=== PATIENT | male | born 1980 | race Caucasian/White ===

== ENCOUNTER 2019-07-10 10:33 | Emergency (ER) | payer SELFPAY ==
--- NOTE | 2019-07-10 12:15 | UC ---
Back Pain HPI - HPI Summary HPI Summary: 39 year old male, no PCP, no major back injuries in the past, presents with increased lower back pain starting on Wednesday. Patient was bending down to tie shoe, when straightening up, felt pop and extreme pain in right lower back. No radiating, no numbness/ tingling. No decrease in strength. Pain with spasms in left upper thigh. 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 - History of Current Complaint Chief Complaint: UCBackPain Stated Complaint: BACK INJURY Time Seen by Provider: 07/10/19 11:41 Hx Obtained From: Patient Onset/Duration: Sudden Onset, Lasting Days - 3/7 Timing: Constant Severity Initially: Severe Severity Currently: Severe Pain Intensity: 10 Pain Scale Used: 0-10 Numeric Back Pain: Is Discrete @ - right lower leg Associated Signs And Symptoms: Negative: Swelling, Weakness, Numbness, Tingling , Flank Pain, Bladder Incontinence, Bowel Incontinence, Weight Loss, Pain with Weight Bearing - Allergies/Home Medications Allergies/Adverse Reactions: Allergies Allergy/AdvReac Type Severity Reaction Status Date / Time No Known Allergies Allergy Verified 07/10/19 10:45 Home Medications: Home Medications Cyclobenzaprine TAB* [Flexeril 10 MG TAB*] 10 mg PO TID PRN #30 tab 07/10/19 [Rx ] Naproxen [Naproxen 250 mg tab] 250 mg PO BID #6 tablet 07/10/19 [Rx] predniSONE [Prednisone 20 MG TAB] 2 tab PO DAILY #10 tablet 07/10/19 [Rx] PMH/Surg Hx/FS Hx/Imm Hx Previously Healthy: Yes - Surgical History Surgical History: Yes Surgery Procedure, Year, and Place: growth removed from neck as a child - Family History Known Family History: Positive: Non-Contributory - Social History Occupation: Employed Full-time - construction work Alcohol Use: None Substance Use Type: None Smoking Status (MU): Never Smoked Tobacco Review of Systems All Other Systems Reviewed And Are Negative: Yes Constitutional: Positive: Negative Musculoskeletal: Positive: Arthralgia, Decreased ROM, Myalgia Neurological/Mental Status: Positive: Negative Psychological: Positive: Negative Is Patient Immunocompromised?: No Physical Exam Triage Information Reviewed: Yes Appearance: Well-Appearing, Well-Nourished, Pain Distress - worse with movement Vital Signs: Initial Vital Signs Temp 98.7 F 07/10/19 10:40 Pulse 88 07/10/19 10:40 Resp 17 07/10/19 10:40 BP 138/97 07/10/19 10:40 Pulse Ox 100 07/10/19 10:40 Vital Signs Reviewed: Yes Eyes: Positive: Conjunctiva Clear Neck: Positive: Supple, Nontender, No Lymphadenopathy. Negative: Nuchal Rigidity, Enlarged Nodes @ Musculoskeletal: Positive: Strength Intact - lower back, L hip, l knee, ROM Intact - full FF, extension. able to stand on one foot, alternating, toe/ heel stand, heel up thomson b/l, neg rhomberg. Neurological: Positive: Alert, Other: - patellar reflexes 2+ b/l SITLT distal to ankle L sided. DF/pF intact b/l Psychological Exam: Normal Skin Exam: Normal Skin: Negative: Rashes, Breakdown Back Pain Course/Dx - Course Course Of Treatment: - Flexeril for muscle spasms as needed - Prednisone 40mg daily x 5 days - Naproxen 250mg twice daily x 3 days, start after completing prednisone - Back exercises, gently - No lifting/ pushing/ pulling greater than 20 pounds for 3-4 days, gently increase - Rest, ice/ heat as needed - Go to ER with numbness/ decreased strength, weakness, loss of bowel/ bladder function radiograph: Bench Mechanic: Cheng Foss Daniel, ([id number]) Break And Load Operator: APRIL ( APRIL) Report Date: 07/10/2019 13:00:00 Report Status: Final ====== Start of Report Content Patient Name: EVERETT PANDYA Medical Record#: [id number] Ordering Physician: Sheila SULTANA Acct.#: [id number] : 06/1979 Age: 39 Sex: M Location: [facility] Exam Date: 07/10/19 1234 ADM Status: REG ER Order Information: SP LUMBARSACRAL 4+ VWS Accession Number: [id number] CPT: 11562 HISTORY: lower back pain, "pop" noise 07/07 COMPARISONS: None relevant available at the time of dictation. VIEWS: 5 , Frontal, lateral, coned-down lateral sacral, and bilateral oblique views of the lumbar spine. FINDINGS: ALIGNMENT: There is a mild dextroscoliotic curvature of the spine. VERTEBRAL BODIES: There is anterolateral marginal osteophyte formation JOINTS: There is facet osteoarthritis most advanced at L4-L5 and L5- S1. INTERVERTEBRAL DISCS: There is mild diffuse loss of intervertebral disc height. SOFT TISSUE: Unremarkable. OTHER: There is mild osteoarthritis of the hips. IMPRESSION: DEGENERATIVE DISC DISEASE AND OSTEOARTHRITIS MOST PRONOUNCED ALONG THE LOWER LUMBAR SPINE. <Electronically signed by Cheng Foss MD in OV> 07/10/19 1256 Dictated By: Cheng Foss MD Dictated Date/Time: 07/10/19 1255 Transcribed Date/Time: 07/10/19 1255 Copy to: CC:Dominick Vinson MD; Sheila SULTANA ; No Primary Care Phys,NOPCP Imaging - [facility] - [place] [facility] [address] [address] ph [phone]) ph [phone]) ph ([phone]) ==== End of Report Content - Differential Dx/Diagnosis Differential Diagnosis/HQI/PQRI: Strain, Sprain Provider Diagnosis: Strain of tendon of lower back, Arthritis of back Discharge ED - Sign-Out/Discharge Documenting (check all that apply): Patient Departure All imaging exams completed and their final reports reviewed: Yes - Discharge Plan Condition: Good Disposition: HOME Prescriptions: Cyclobenzaprine TAB* [Flexeril 10 MG TAB*] 10 mg PO TID PRN #30 tab PRN Reason: muscle spasms Naproxen [Naproxen 250 mg tab] 250 mg PO BID #6 tablet predniSONE [Prednisone 20 MG TAB] 2 tab PO DAILY #10 tablet Patient Education Materials: Low Back Strain (ED), Core Strengthening Exercises (GEN), Lower Back Exercises (ED) Referrals: No Primary Care Phys,NOPCP [Primary Care Provider] - [facility] [Outside] Marissa Worley MD [Medical Doctor] - Additional Instructions: - Flexeril for muscle spasms as needed - Prednisone 40mg daily x 5 days - Naproxen 250mg twice daily x 3 days, start after completing prednisone - Back exercises, gently - No lifting/ pushing/ pulling greater than 20 pounds for 3-4 days, gently increase - Rest, ice/ heat as needed - Go to ER with numbness/ decreased strength, weakness, loss of bowel/ bladder function - Billing Disposition and Condition Condition: GOOD Disposition: Home
[2019-07-10 13:08] VITALS: BP 134/73
== END 2019-07-10 13:18 | disposition home or self-care (01) ==
LOC: UCEAST 10:33
DX: S39.012A Strain of muscle, fascia and tendon of lower back, initial encounter (principal); M46.96 Unspecified inflammatory spondylopathy, lumbar region; M51.36 Other intervertebral disc degeneration, lumbar region; M47.896 Other spondylosis, lumbar region; X50.0XXA Overexertion from strenuous movement or load, initial encounter; Y92.9 Unspecified place or not applicable
CPT/HCPCS: 72110; 99202; G0463

== ENCOUNTER 2019-07-11 09:28 | Emergency (ER) | payer BC ==
--- NOTE | 2019-07-11 12:04 | UC ---
General HPI - HPI Summary HPI Summary: Pleasant 39 yo gentleman Back pain since Wednesday (today is ). Threw his back out on Wednesday during hockey game Seen yesterday in [facility]. Xrays noted (BLAYNED). Started prednisone taper last night, but no better today. Indeed now has pain L ant thigh and tingling L let thigh. No new weakness. No b/b leak. No pain like this is the past. - History of Current Complaint Chief Complaint: UCBackPain Stated Complaint: LOW BACK & LEG PAIN Time Seen by Provider: 07/11/19 12:04 Hx Obtained From: Patient Pain Intensity: 8 - Allergy/Home Medications Allergies/Adverse Reactions: Allergies Allergy/AdvReac Type Severity Reaction Status Date / Time No Known Allergies Allergy Verified 07/10/19 10:45 Home Medications: Home Medications Cyclobenzaprine TAB* [Flexeril 10 MG TAB*] 10 mg PO TID PRN #30 tab 07/10/19 [Rx ] Naproxen [Naproxen 250 mg tab] 250 mg PO BID #6 tablet 07/10/19 [Rx] predniSONE [Prednisone 20 MG TAB] 2 tab PO DAILY #10 tablet 07/10/19 [Rx] PMH/Surg Hx/FS Hx/Imm Hx Previously Healthy: Yes - Surgical History Surgical History: Yes Surgery Procedure, Year, and Place: growth removed from neck as a child - Family History Known Family History: Positive: Non-Contributory - Social History Alcohol Use: None Substance Use Type: None Smoking Status (MU): Never Smoked Tobacco Review of Systems All Other Systems Reviewed And Are Negative: Yes Constitutional: Positive: Negative Skin: Positive: Negative Eyes: Positive: Negative ENT: Positive: Negative Respiratory: Positive: Negative Cardiovascular: Positive: Negative Gastrointestinal: Positive: Negative Genitourinary: Positive: Negative Motor: Positive: Other - see hpi Neurovascular: Positive: Other - see hpi Musculoskeletal: Positive: Arthralgia, Myalgia Neurological/Mental Status: Positive: Negative Psychological: Positive: Negative Is Patient Immunocompromised?: No Physical Exam Triage Information Reviewed: Yes Appearance: Well-Nourished - lying down but able to sit up looks uncomfortable but nad Vital Signs: Initial Vital Signs Temp 98 F 07/11/19 09:53 Pulse 97 07/11/19 09:53 Resp 16 07/11/19 09:53 BP 125/82 07/11/19 09:53 Pulse Ox 100 07/11/19 09:53 Vital Signs Reviewed: Yes Eye Exam: Normal ENT Exam: Normal - nad Neck exam: Normal - no pain c/o Respiratory Exam: Normal Respiratory: Positive: No respiratory distress, No accessory muscle use Cardiovascular Exam: Normal Cardiovascular: Positive: Brisk Capillary Refill Abdominal Exam: Normal, Other - no cvat Abdomen Description: Positive: Nontender Musculoskeletal Exam: Other - Tender midlow back (lumbar) just to the left of the spine. + spasm + pain rad to iliac crest Distal sens LT and strength ok. No clonus Patella reflex 2+ R; diminishe (1) L. Clonus equivocal (pain) Neurological Exam: Other - see [facility] Psychological Exam: Normal - nad Skin Exam: Normal - no visible or reported rash nondiaphoretic Course/Dx - Course Course Of Treatment: Reviewed xray report from yesterday reviewed coa / tx plan with pt. Will order CT lumbar 13:35 - reviewed CT report with Radiologist. ABRAHAN paged (n/a). I spoke with Dr. Land ED. Reviewed CT report with Mr. James. He will go to the ED, but declines EMS. Questions as posed answered to the best of my ability. CT lumbar - See [employer] report for details A central to left paracentral superior directed disc extrusion L4-5 in at least mod spinal canal stenosis and likely displaces the descending left L5 nerve root. Further evaluation by lumbar spine MRI without contrast is recommended. Additional varying degrees of midlevel spondylosis as above. Three is severe left neural foraminal stenosis at L5-S1 - Diagnoses Provider Diagnosis: Lumbar disc herniation Discharge ED - Sign-Out/Discharge Documenting (check all that apply): Patient Departure All imaging exams completed and their final reports reviewed: Yes - Discharge Plan Condition: Guarded Disposition: HOME-RECOMMEND TO ED Patient Education Materials: Lumbar Disc Herniation (ED) Referrals: No Primary Care Phys,NOPCP [Primary Care Provider] - Additional Instructions: Recommend go to the Emergency Department. Stop and call 911 if problems in the meantime. Please do not eat anything prior to going to the Emergency Department. - Billing Disposition and Condition Condition: GUARDED Disposition: Home-Recommend to ED
[2019-07-11 12:58] VITALS: BP 140/94
== END 2019-07-11 14:00 | disposition home health service (06) ==
LOC: UCEAST 09:28
DX: M51.26 Other intervertebral disc displacement, lumbar region (principal); M47.896 Other spondylosis, lumbar region; M48.07 Spinal stenosis, lumbosacral region
CPT/HCPCS: 72131; 99212; G0463

== ENCOUNTER 2019-07-11 14:44 | Emergency (ER) | payer BC ==
--- NOTE | 2019-07-11 16:35 | ED ---
Back Pain - HPI Summary HPI Summary: 39 year old M presenting to [facility] with a chief complaint of lower back pain since 5 days ago and numbness and weakness to his left thomson since today secondary to a lumbar disc herniation. The patient rates the pain 6/10 in severity. Symptoms aggravated by nothing. Symptoms alleviated by nothing. Patient denies any back numbness or difficulty urinating. He reports that he was seen at [facility] earlier today and had a CT and was advised to come to the emergency department for further evaluation. He was also seen at urgent care last night and prescribed pain medications. Patient states that at the onset of his symptoms he was standing up from tying his hockey skate laces. Medication list reviewed. Allergy list reviewed. - History of Current Complaint Chief Complaint: EDBackInjuryPain Stated Complaint: LOW BACK/L LEG PAIN PER PT Time Seen by Provider: 07/11/19 16:29 Hx Obtained From: Patient Onset/Duration: Sudden Onset Onset/Duration: Started Days Ago Timing: Constant Back Pain Location: Is Discrete @ - Lower back Severity Currently: Moderate Pain Intensity: 6 Pain Scale Used: 0-10 Numeric Aggravating Symptom(s): Nothing Alleviating Symptom(s): Nothing Associated Signs And Symptoms: Positive: Weakness - Left leg, Numbness - Left thomson. Negative: Bladder Incontinence - Allergies/Home Medications Allergies/Adverse Reactions: Allergies Allergy/AdvReac Type Severity Reaction Status Date / Time No Known Allergies Allergy Verified 07/10/19 10:45 Home Medications: Home Medications Cyclobenzaprine TAB* [Flexeril 10 MG TAB*] 10 mg PO TID PRN #30 tab 07/10/19 [ Rx Confirmed 07/11/19] Naproxen [Naproxen 250 mg tab] 250 mg PO BID #6 tablet 07/10/19 [Rx Confirmed ] predniSONE [Prednisone 20 MG TAB] 2 tab PO DAILY #10 tablet 07/10/19 [Rx Confirmed 07/11/19] oxyCODONE/Acetamin 5/325 MG* [Percocet 5/325 TAB*] 1 tab PO Q6H PRN 3 Days #12 tab MDD 4 07/11/19 [Rx] PMH/Surg Hx/FS Hx/Imm Hx Endocrine/Hematology History: Denies: Hx Diabetes Cardiovascular History: Denies: Hx Hypertension - Surgical History Surgery Procedure, Year, and Place: growth removed from neck as a child Infectious Disease History: No Infectious Disease History: Denies: Traveled Outside the [place] in Last 30 Days - Family History Known Family History: Positive: Diabetes - Social History Alcohol Use: None Substance Use Type: Reports: None Smoking Status (MU): Never Smoked Tobacco Review of Systems Positive: no symptoms reported Positive: Other - Back pain Neurological/Mental Status: Negative - Back numbness Positive: Weakness - Left leg, Numbness - Left thomson All Other Systems Reviewed And Are Negative: Yes Physical Exam - Summary Physical Exam Summary: Constitutional: Well-developed, Well-nourished, Alert. (-) Distressed Skin: Warm, Dry HENT: Normocephalic; Atraumatic Eyes: Conjunctiva normal Neck: Musculoskeletal ROM normal neck. (-) JVD, (-) Stridor, (-) Nuchal rigidity Cardio: Rhythm regular, rate normal, Heart sounds normal; Intact distal pulses; Radial pulses are 2+ and symmetric. (-) Murmur Pulmonary/Chest wall: Effort normal. (-) Respiratory distress, (-) Wheezes, (-) Rales Abd: Soft, (-) tenderness, (-) Distension, (-) Guarding, (-) Rebound Musculoskeletal: (-) Edema; positive straight leg raise on the left; tenderness of left SI joint and left paraspinal lumbar spine. No throacic spine tenderness. Lymph: (-) Cervical adenopathy Neuro: Alert, Oriented x3. decreased sensation to anterior left thomson; No numbness of the thighs, buttocks, posterior calf. Strength 5/5 L foot flex/ext, knee flex/ext and thigh flex/ext. Psych: Mood and affect Normal Triage Information Reviewed: Yes Vital Signs On Initial Exam: Initial Vitals Temp Pulse Resp BP Pulse Ox 100.1 F 100 16 133/92 98 07/11/19 14:48 07/11/19 14:48 07/11/19 14:48 07/11/19 14:48 07/11/19 14:48 Vital Signs Reviewed: Yes Procedures - Sedation Patient Received Moderate/Deep Sedation with Procedure: No Diagnostics - Vital Signs Vital Signs Temp Pulse Resp BP Pulse Ox 07/11/19 14:48 100.1 F 100 16 133/92 98 - Laboratory Lab Statement: Any lab studies that have been ordered have been reviewed, and results considered in the medical decision making process. Re-Evaluation - Re-Evaluation First Eval Re-Evaluation Time: 17:07 Comment: Spoke with the OR who will relay message to Dr. Jackson. Back Pain Course/Dx - Course Course Of Treatment: 39 y/o male w lower back pain found to have lumbar disc herniation on CT sent in for MRI. - no signs of cauda equina. D/w NSGY who agrees w MRI. Given percocet for pain control. Patient will be signed out by Dr. Fox to Dr. Campos at 19:00 on 07/11/2019 pending MRI and disposition. - Diagnoses Provider Diagnoses: Lumbar disc herniation with radiculopathy - Provider Notifications Discussed Care Of Patient With: Dmitri Jackson Time Discussed With Above Provider: 18:48 Instructed by Provider To: Other - Discussed with Dr. Jackson who agrees with the MRI. If unremarkable and no signs of cauda equina can discharge with out-patient follow-up. Discharge ED - Sign-Out/Discharge Documenting (check all that apply): Sign-Out Patient Signing out patient TO: Michelle Campos - Pending MRI and disposition. - Discharge Plan Condition: Stable Disposition: HOME Prescriptions: oxyCODONE/Acetamin 5/325 MG* [Percocet 5/325 TAB*] 1 tab PO Q6H PRN 3 Days #12 tab MDD 4 PRN Reason: Pain Patient Education Materials: Lumbar Disc Herniation (ED), Lumbar Radiculopathy (ED) Referrals: Dmitri Jackson MD [Medical Doctor] - 1 Day Additional Instructions: FOLLOW UP WITH NEUROSURGERY TOMORROW. TAKE YOUR MEDICATIONS PRESCRIBED. APPLY ICE TO PAINFUL AREA. PLEASE RETURN TO ED FOR ANY NEW OR WORSENING SYMPTOMS. - Billing Disposition and Condition Condition: STABLE Disposition: Home - Attestation Statements Document Initiated by Scribe: Yes Documenting Scribe: Bree Serna Provider For Whom Vanessa is Documenting (Include Credential): Keiry Fox MD Scribe Attestation: Bree Guthrie, scribed for Keiry Fox MD on 07/12/19 at 1010. Scribe Documentation Reviewed: Yes Provider Attestation: The documentation as recorded by the scribe, Bree [place] accurately reflects the service I personally performed and the decisions made by me, Keiry Fox MD Status of Scribe Document: Viewed
[2019-07-11] MEDS ORDERED: oxyCODONE/Acetamin 5/325 MG* TAB PO ONE ×2 (17:06→21:20)
[2019-07-11 20:02] VITALS: BP 124/72
--- NOTE | 2019-07-11 20:54 | ED ---
Progress - Progress Note Progress Note: Patient is received as a sign-out from Dr. Fox at 1900 07/11/19 shift change pending lumbar spine MRI. Re-Evaluation - Re-Evaluation First Eval Re-Evaluation Time: 20:53 Comment: MRI report reviewed, patient to be discharged to home with neurosurgery followup. Course/Dx - Course Course Of Treatment: Patient is received as a sign-out from Dr. Fox pending Lumbar Spine MRI. LUMBAR SPINE MRI IMPRESSION: 1. L4-L5: Mild stenosis of the thecal sac, severe stenosis of the left lateral. recess, and mild bilateral neural foraminal stenosis, where there is a. concentric bulge with a superimposed 6 mm in anterior to posterior dimension. central/left paracentral extrusion that migrates superiorly by 17 mm with. respect to the inferior endplate of L4 and posteriorly displaces the left L4. nerve root in the left lateral recess. 2. L5-S1: Moderate left neural foraminal stenosis and mild right neural. foraminal stenosis, where there is severe loss of disc height, disc. desiccation, a broad-based posterior protrusion, fissuring of the posterior. central portion of the annulus fibrosus, moderate osteoarthritis of the left. facet joint, and moderate hypertrophy of the right facet joint. Patient will be discharged to home with Dr. Jackson followup tomorrow morning. He has already been prescribed prednisone and Flexeril from a previous visit and is prescribed Percocet today by Dr. Fox. Patient is ambulating with moderate discomfort. He denies foot drop, issues with bowl or bladder incontinence, no saddle paresthesia. Patient discharged home. - Diagnoses Provider Diagnoses: Lumbar disc herniation with radiculopathy Discharge ED - Sign-Out/Discharge Documenting (check all that apply): Patient Departure - dischare, Receiving Sign -Out Receiving patient FROM: Keiry Fox - Discharge Plan Condition: Stable Disposition: HOME Prescriptions: oxyCODONE/Acetamin 5/325 MG* [Percocet 5/325 TAB*] 1 tab PO Q6H PRN 3 Days #12 tab MDD 4 PRN Reason: Pain Patient Education Materials: Lumbar Disc Herniation (ED), Lumbar Radiculopathy (ED) Referrals: Dmitri Jackson MD [Medical Doctor] - 1 Day Additional Instructions: FOLLOW UP WITH NEUROSURGERY TOMORROW. TAKE YOUR MEDICATIONS PRESCRIBED. APPLY ICE TO PAINFUL AREA. PLEASE RETURN TO ED FOR ANY NEW OR WORSENING SYMPTOMS. - Billing Disposition and Condition Condition: STABLE Disposition: Home - Attestation Statements Document Initiated by Vanessa: Yes Documenting Scribe: DEION PAREKH Provider For Whom Vanessa is Documenting (Include Credential): RAMU SCHULTE MD Scribe Attestation: IDEION, scribed for RAMU SCHULTE MD on 07/15/19 at 0048. Scribe Documentation Reviewed: Yes Provider Attestation: The documentation as recorded by the DEION falcon accurately reflects the service I personally performed and the decisions made by me, RAMU SCHULTE MD Status of Scribe Document: Viewed
== END 2019-07-11 21:49 | disposition home or self-care (01) ==
LOC: ED 14:44
DX: M51.16 Intervertebral disc disorders with radiculopathy, lumbar region (principal); M54.5 Low back pain
CPT/HCPCS: 72148; 99284; A9270-GY